=== PATIENT | male | born 1970 | race Caucasian/White ===

== ENCOUNTER → 2021-08-19 09:51 | Outpatient (BNVA) | payer OTHER, SELFPAY | PROVIDERS: Family Provider Nurse Practitioner; PCP Nurse Practitioner; Visit Provider Podiatrist Foot & Ankle Surgery | DX: M79.672 Pain in left foot (principal) | CPT/HCPCS: 73630 ==

== ENCOUNTER 2021-08-19 10:59 | Outpatient (CLI) | payer OTHER, SELFPAY | END 2021-08-19 11:00 | disposition home or self-care (01) | LOC: SPT 11:00 | PROVIDERS: Family Provider Nurse Practitioner; PCP Nurse Practitioner; Visit Provider Podiatrist Foot & Ankle Surgery | DX: Z46.89 Encounter for fitting and adjustment of other specified devices (principal); M76.70 Peroneal tendinitis, unspecified leg | CPT/HCPCS: 97760; L4361 ==

== ENCOUNTER 2022-02-16 15:51 | Outpatient (CLI) | payer OTHER, SELFPAY | END 2022-02-16 15:52 | disposition home or self-care (01) | LOC: SPT 15:52 | PROVIDERS: Family Provider Nurse Practitioner; PCP Nurse Practitioner; Visit Provider Podiatrist Foot & Ankle Surgery | DX: M79.673 Pain in unspecified foot (principal); M76.70 Peroneal tendinitis, unspecified leg | CPT/HCPCS: L3030 ==

== ENCOUNTER → 2022-02-25 09:39 | Outpatient (BNVA) | payer OTHER, SELFPAY | PROVIDERS: Family Provider Nurse Practitioner; PCP Nurse Practitioner Family; Visit Provider Nurse Practitioner Family | DX: I10 Essential (primary) hypertension (principal); R04.0 Epistaxis; J30.2 Other seasonal allergic rhinitis | CPT/HCPCS: 80053; 85025 ==

== ENCOUNTER 2024-07-10 12:17 | Outpatient (CLI) | payer BC, SELFPAY ==
[2024-07-10 12:26] VITALS: BMI 36.7
--- NOTE | 2024-07-10 12:27 | ECG_ITS ---
[facility] Test Date: 2024-07-10 Pat Name: Mario Alberto Mays Department: Room: Gender: Male Management Expert: : 1970 Requested By: Pipe Crowell Order Number: [id number] Nicola MD: Ketan Diggs M.D. Interpretive Statements EXERCISE STRESS TEST EXERCISE DATA: The patient was exercised by Jose Alberto protocol. Baseline heart rate was 62 beats per minute. Baseline blood pressure was 132/87 millimeters of mercury. Maximal predicted heart rate was 166 beats per minute. Maximum heart rate achieved was 160, which was 96% of the maximum predicted heart rate. Maximum blood pressure was 199/77 millimeters of mercury. Total exercise time was 8 Minutes 49 seconds. Maximum METs achieved was 10.2. The reason for ending the test was maximal effort achieved. The patient complained of shortness of breath and chest/throat burn during the stress test, which then resolved at the end of the test. ELECTROCARDIOGRAM: BASELINE: Showed sinus rhythm, normal axis, no significant ST-T changes at the baseline noted. [] EXERCISE: At the peak exercise level, [] No significant ST-T changes suggestive of ischemia noted. [] RECOVERY: During the recovery period, heart rate dropped appropriately. No significant ST-T changes in the recovery suggestive of ischemia noted. [] CONCLUSION: 1. Exercise capacity is good. 2. Heart rate response was appropriate 3. Blood pressure response was appropriate 4. Symptoms not suggestive of ischemia. 5. Stress test is negative for ischemia Electronically Signed On 07-14-2024 10:02:54 BANQUET SET UP PERSON by Ketan Diggs M.D. [email or web address]
[2024-07-10 13:11] VITALS: BP 154/78; PULSE 82
[2024-07-10 14:08] LABS: Alanine Aminotransferase 27 U/L (0-41); Albumin Level 4.2 g/dL (3.5-5.2); Alkaline Phosphatase 69 U/L (40-130); Anion Gap 17.8 (5-19); Aspartate Amino Transferase 15 U/L (0-40); Blood Urea Nitrogen 18 mg/dL (6-20); Calcium 9.4 mg/dL (8.5-10.5); Carbon Dioxide 25 mmol/L (22-29); Chloride 100 mmol/L (98-107); Creatinine Clr Calc Pharmacy 92.9928; Globulin 2.7 g/dL (1.3-4.6); Glomerular Filtration Rate 57.5 mL/min (90-130); Glucose 101 mg/dL (65-115); Osmolality Calculated 290 mOsm/kg (285-295); Potassium 3.8 mmol/L (3.5-5.1); Sodium 139 mmol/L (136-145); Total Bilirubin 0.7 mg/dL (0.15-1.2); Total Protein 6.9 g/dL (6.6-8.7)
[2024-07-15 16:18] LABS: Dopamine Level <10 pg/mL; Epinephrine Level <10 pg/mL; Norepinephrine Level 312 pg/mL; Total Catecholamines <332 pg/mL
[2024-07-15 21:29] LABS: Calculated Total (E+NE) 32 mcg/g cr (9-74); Creatinine, Random Urine 75 mg/dL (20-320); Epinephrine Urine 9 mcg/g cr (2-16); Norepinphrine Urine 23 mcg/g cr (7-65)
== END 2024-07-10 12:18 | disposition home or self-care (01) ==
PROVIDERS: PCP Nurse Practitioner Family; Visit Provider Nurse Practitioner Family
DX: I10 Essential (primary) hypertension (principal); R07.89 Other chest pain
CPT/HCPCS: 36415; 80053; 82384; 82570; 93017

== ENCOUNTER 2024-07-11 11:23 | Outpatient (CLI) | payer BC, SELFPAY ==
--- NOTE | 2024-07-11 11:31 | XR_ITS ---
WS: [id number] Exam: XR cervical spine 3V* [id number] Date/Time of Exam: 07/11/2024 11:41 AM Reason For Exam: M48.02 - Spinal stenosis, cervical region No acute fracture. Disc spaces are relatively well-maintained. Minimal spondylosis. Mild facet DJD at all levels. Normal paraspinal soft tissues. The odontoid is intact. IMPRESSION1. Degenerative changes. No fracture or malalignment.
--- NOTE | 2024-07-11 11:31 | XR_ITS ---
WS: [id number] Exam: XR thoracic spine 3V* [id number] Date/Time of Exam: 07/11/2024 11:41 AM Reason For Exam: M48.02 - Spinal stenosis, cervical region No fracture noted. Mild spondylosis. Normal paraspinal soft tissues. XR/XR thoracic spine 3V* [id number] IMPRESSION: 1. Mild spondylosis. No fracture or malalignment.
== END 2024-07-11 11:24 | disposition home or self-care (01) ==
PROVIDERS: PCP Nurse Practitioner Family; Visit Provider Nurse Practitioner Family
DX: M48.02 Spinal stenosis, cervical region (principal); M47.894 Other spondylosis, thoracic region; M19.90 Unspecified osteoarthritis, unspecified site
CPT/HCPCS: 72040; 72072

== ENCOUNTER 2024-07-12 08:57 | Observation (INO) | payer BC, SELFPAY ==
[2024-07-12] VITALS (9 sets, daily range): BP systolic 145–163; BP diastolic 90–106; PULSE 59–75; RESP 17–19; TEMP 36.7–37; O2SAT 93–100; BMI 36.7
[2024-07-12 09:24] LABS: Basophils % 0.2 %; Eosinophils % 0.1 %; Hematocrit 48.7 % (37-53); Lymphocytes # 1.6 10^3/uL (0.8-4.8); Lymphocytes % 10.1 %; Mean Corpuscular HGB Conc 33.1 g/dL (30-55); Mean Corpuscular Hemoglobin 30.3 pg (27-33); Mean Corpuscular Volume 91.5 fl (82-101); Mean Platelet Volume 10.4 fL (7.4-10.4); Monocytes # 1.2 10^3/uL (0.2-0.9); Neutrophils # 12.52 10^3/uL (1.8-7.7); Neutrophils % 81.1 %; Nucleated Red Blood Cells % 0 %; Platelet Count 234 10^3/cmm (157-399); Red Blood Count 5.32 10^6/uL (3.85-5.65); Red Cell Distribution Width 13.2 % (12.1-15.1); White Blood Count 15.42 10^3/uL (3.29-11.43)
--- NOTE | 2024-07-12 09:26 | CT_ITS ---
WS: [id number] CT ABDOMEN PELVIS TECHNIQUE: Contrast-enhanced CT of the abdomen and pelvis with coronal and sagittal reformatted image s. CLINICAL INFORMATION: abdominal pain, bloody stools COMPARISON: None. DLP: 1187.[address] scans at [facility] use at least one of these dose optimization techniques: automated e xposure control; mA and/or kV adjustment per patient size (includes targeted exams where dose is matc hed to clinical indication); or iterative reconstruction. FINDINGS: Inflammatory stranding with edema and surrounding induration involving the sigmoid colon in the LEFT lower quadrant compatible with acute diverticulitis. This extends into the descending distal LEFT col on. No evidence of drainable abscess or drainable fluid collection. No evidence of high-grade obstruc tion. Mild diffuse fatty infiltration of the liver. Small hepatic cyst RIGHT hepatic lobe. Normal gallbladd er. Small esophageal hiatal hernia. Normal small bowel. No evidence of small or large bowel obstructi on. Normal transverse colon and RIGHT colon. Mild prostate enlargement. Adrenal glands are normal. No hydronephrosis in either kidney. Normal panc reas. Normal spleen. Normal gallbladder. Portal vein and splenic vein are patent. Lung bases are well aerated. Normal caliber abdominal aorta. Celiac and SMA are patent. Mild disc bul ging L3-4. CT/CT abdomen pelvis w con* [id number] IMPRESSION: 1. Acute diverticulitis sigmoid colon. No evidence of drainable abscess or flu id collection. 2. No other acute findings. Notified AMADO Dewey at 07/12/2024 10:35 AM.
--- NOTE | 2024-07-12 09:26 | W.ED.ABDPA2 ---
HPI - Abdominal Pain General: Chief Complaint: Abdominal Pain Stated Complaint: abdominal pain Time Seen by Provider: 07/12/24 08:58 Source: patient and family Mode of arrival: ambulatory Limitations: no limitations History of Present Illness: Patient is a nice 64-year-old male presents to ED today with complaint of abdominal pain and bloody diarrhea. He states he began noticing abdominal pain in the middle of the night around midnight. He states he was having diarrhea every 15 to 20 minutes. Patient states that the lights were off so he could not characterize the diarrhea stool any further. He states this morning when he turned on the lights he noticed that his diarrhea was bright red and blood. He is having severe abdominal pain and cramping. This somewhat improves after defecation. Denies poor food exposures. No fevers. 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 He is not having any rectal pain or swelling. He does have a history of psoriasis around his rectum. He arrives with stable vital signs. MD elicited complaint: abdominal pain Pertinent past history: other (anal fissure/fistula) Onset (ago): hour(s) Pain Consistency: constant Location: Diffuse Severity: severe Quality: cramping Radiation: none Migration to: no migration Exacerbating factors: nothing Relieving factors: bowel movement Associated Symptoms: Reports GI cramping, diarrhea, hematochezia and nausea; Denies chills, dysuria, fever(s), hematemesis, melena and vomiting Related Data Previous Rx's Medication Instructions Recorded prednisone 20 mg tablet 20 mg PO DAILY #17 tabs 07/04/24 Allergies Allergy/AdvReac Type Severity Reaction Status Date / Time naproxen Allergy Mild Itching Verified 07/04/24 15:54 Review of Systems Const: Denies: fever(s), chills, body aches, fatigue or malaise Card: Denies: chest pain Resp: Denies: dyspnea GI: Reports: abdominal pain, nausea, diarrhea, GI cramping and hematochezia; Denies: vomiting, hematemesis, rectal pain, rectal swelling or melena : Denies: flank pain or dysuria Musc: Denies: neck pain, back pain, extremity pain, extremity swelling, joint pain or joint swelling Skin/Breast: Denies: rash Neuro: Denies: headache(s) or dizziness PFSH ED PFSH: Social History Smoking and tobacco/nicotine status: current every day tobacco/nicotine user Second hand smoke exposure: No Alcohol intake: never Substance/Drug Use: never Physical Exam Const: COMMON NORMALS: average body habitus, patient oriented x3, no limitations, healthy appearing, alert and well nourished GENERAL APPEARANCE: cooperative and in distress (visibly appears uncomfortable ) ORIENTATION/CONSCIOUSNESS: Yes awake, Yes oriented to person, Yes oriented to place and Yes oriented to time Resp: COMMON NORMALS: normal respiratory effort and clear to auscultation bilaterally AUSCULTATION: clear to auscultation bilaterally Cardio: COMMON NORMALS: regular rate and regular rhythm RATE: regular rate RHYTHM: regular rhythm GI: COMMON NORMALS: no masses INSPECTION: Yes normal to inspection AUSCULTATION: Yes Hypoactive bowel sounds present PALPATION: Yes Tenderness to palpation present (GI) (diffusely), Yes Guarding due to palpation present (GI) and No Rigid due to palpation RECTAL EXAM: Yes visual inspection normal : COMMON NORMALS: Yes no CVA tenderness BLADDER/KIDNEY EXAM: Yes no CVA tenderness Back/Pelvis: COMMON NORMALS: no CVA tenderness Extremity: GENERAL: Yes normal exam except as noted Neuro: MARSHA COMA SCALE: document GCS findings Marsha coma scale eye opening: Spontaneous Marsha coma scale verbal response: Orientated [place] coma scale motor response: Obey commands [place] coma scale total score: 15 COMMON NORMALS: patient oriented x3, moves all extremities, no focal motor deficits and no sensory deficits noted SENSORIUM/ORIENTATION: Yes alert, Yes oriented to person, Yes oriented to place and Yes oriented to time Skin: COMMON NORMALS: no rashes or lesions noted GENERAL SKIN EXAM: no rashes or lesions noted Course Consultations: Consultation #1: Dr. Rivera-accepts observation admit Vital Signs: Vital signs: Vital Signs Temperature 98.1 F 07/12/24 09:12 Pulse Rate 62 07/12/24 09:18 Respiratory Rate 18 07/12/24 09:50 Blood Pressure 163/97 07/12/24 09:18 Pulse Oximetry 97 07/12/24 09:18 Oxygen Delivery Me thod Room Air 07/12/24 09:18 MDM - Abdominal Pain Medical Decision Making Patient is a nice 54-year-old male here with complaints of bloody diarrhea and significant abdominal pain. He was found to have acute uncomplicated diverticulitis. Patient is concerned about pain not being able to be controlled at home. He does have a white count of 15.4 today. He has been on steroids recently. Remainder of blood work overall looks okay. I think given his clinical presentation, it is reasonable to keep him overnight for an observation stay. He was started on IV antibiotics. Spoke to hospitalist, Dr. Rivera, who is agreeable to observation. Dr. Mario agrees with plan and will write admit orders. Differential Diagnosis Likely abdominal pain and diverticulitis Medical Records I reviewed the patient's medical records. Lab Data I reviewed the patient's lab results. 07/12/24 09:19 07/12/24 09:19 Labs/Radiology: Radiology Impressions Abdomen/Pelvis CT 07/12/24 09:26 IMPRESSION: 1. Acute diverticulitis sigmoid colon. No evidence of drainable abscess or fluid collection. 2. No other acute findings. Notified AMADO Dewey at 07/12/2024 10:35 AM. Laboratory Results WBC 15.42 10^3/uL (3.29-11.43) H 07/12/24 09:19 RBC 5.32 10^6/uL (3.85-5.65) 07/12/24 09:19 Hgb 16.10 g/dL (11.27-16.99) 07/12/24 09:19 Hct 48.7 % (37-53) 07/12/24 09:19 MCV 91.5 fl (82-101) 07/12/24 09:19 MCH 30.3 pg (27-33) 07/12/24 09:19 MCHC 33.1 g/dL (30-55) 07/12/24 09:19 RDW 13.2 % (12.1-15.1) 07/12/24 09:19 Plt Count 234 10^3/cmm (157-399) 07/12/24 09:19 MPV 10.4 fL (7.4-10.4) 07/12/24 09:19 Neut % (Auto) 81.1 % 07/12/24 09:19 Lymph % (Auto) 10.1 % 07/12/24 09:19 [place]houn % (Auto) 8.0 % 07/12/24 09:19 Eos % (Auto) 0.1 % 07/12/24 09:19 Baso % (Auto) 0.2 % 07/12/24 09:19 Neut # (Auto) 12.52 10^3/uL (1.8-7.7) H 07/12/24 09:19 Lymph # (Auto) 1.6 10^3/uL (0.8-4.8) 07/12/24 09:19 [place]oun # (Auto) 1.2 10^3/uL (0.2-0.9) H 07/12/24 09:19 Eos # (Auto) 0.0 10^3/uL (0.0-0.8) 07/12/24 09:19 Baso # (Auto) 0.0 10^3/uL (0.0-0.1) 07/12/24 09:19 Nucleated RBC % (auto) 0 % 07/12/24 09:19 Nucleated RBCs # 0.0 /100WBC 07/12/24 09:19 Sodium 138 mmol/L (136-145) 07/12/24 09:19 Potassium 4.2 mmol/L (3.5-5.1) 07/12/24 09:19 Chloride 100 mmol/L (98-107) 07/12/24 09:19 Carbon Dioxide 27 mmol/L (22-29) 07/12/24 09:19 Anion Gap 15.2 (5-19) 07/12/24 09:19 BUN 16 mg/dL (6-20) 07/12/24 09:19 Creatinine 1.1 mg/dL (0.7-1.2) 07/12/24 09:19 GFR Calculation 69.8 mL/min (90-130) L 07/12/24 09:19 Glucose 132 mg/dL (65-115) H 07/12/24 09:19 Calculated Osmolality 289 mOsm/kg (285-295) 07/12/24 09:19 Lactic Acid 1.0 mmol/L (0.5-2.2) 07/12/24 09:53 Calcium 8.9 mg/dL (8.5-10.5) 07/12/24 09:19 Total Bilirubin 0.4 mg/dL (0.15-1.2) 07/12/24 09:19 AST 12 U/L (0-40) 07/12/24 09:19 ALT 31 U/L (0-41) 07/12/24 09:19 Alkaline Phosphatase 75 U/L (40-130) 07/12/24 09:19 Total Protein 6.7 g/dL (6.6-8.7) 07/12/24 09:19 Albumin 4.0 g/dL (3.5-5.2) 07/12/24 09:19 Globulin 2.7 g/dL (1.3-4.6) 07/12/24 09:19 Lipase 15 U/L (13-60) 07/12/24 09:19 Urine Color Yellow (Yellow) 07/12/24 10:29 Urine Appearance Clear (CLEAR) 07/12/24 10:29 Urine pH 6.0 (5-7) 07/12/24 10:29 Ur Specific [place] 1.030 (1.005-1.030) 07/12/24 10:29 Urine Protein Negative (Negative) 07/12/24 10:29 Urine Glucose (UA) Negative (Normal) 07/12/24 10:29 Urine Ketones Negative (Negative) 07/12/24 10:29 Urine Blood Negative (Negative) 07/12/24 10:29 Urine Nitrate Negative (Negative) 07/12/24 10:29 Urine Bilirubin Negative (Negative) 07/12/24 10:29 Urine Urobilinogen 0.2 mg/dL (Negative) 07/12/24 10:29 Ur Leukocyte Esterase Negative (Negative) 07/12/24 10:29 Urine RBC 0-2 /hpf (0-2) 07/12/24 10:29 Urine WBC 0-5 /hpf (0-5) 07/12/24 10:29 Ur Squamous Epith Cells 0-5 /hpf (0-5) 07/12/24 10:29 Amorphous Sediment Not Reportable 07/12/24 10:29 Urine Bacteria None seen /hpf (NONE) 07/12/24 10:29 Hyaline Casts 0.40 /lpf 07/12/24 10:29 All radiology interpretation(s) finalized by discharge Discharge Plan Discharge Patient Disposition: Placed in Observation Clinical Impression: Diverticulitis Condition: Stable Prescriptions: No Action prednisone 20 mg tablet 20 mg PO DAILY Qty: 17 0RF Rx Instructions: 3 tabs a day for 3 days then 2 tabs a day for 3 days then 1 tab a day for 2 days Referrals: Pipe Medina FNP [Primary Care Provider] - Coding Level of Care Code ED Superintendent [employer] for Kyree Cueva
[2024-07-12 09:41] LABS: Alanine Aminotransferase 31 U/L (0-41); Alkaline Phosphatase 75 U/L (40-130); Anion Gap 15.2 (5-19); Aspartate Amino Transferase 12 U/L (0-40); Blood Urea Nitrogen 16 mg/dL (6-20); Calcium 8.9 mg/dL (8.5-10.5); Carbon Dioxide 27 mmol/L (22-29); Chloride 100 mmol/L (98-107); Creatinine Clr Calc Pharmacy 109.9006; Globulin 2.7 g/dL (1.3-4.6); Glomerular Filtration Rate 69.8 mL/min (90-130); Glucose 132 mg/dL (65-115); Lipase 15 U/L (13-60); Osmolality Calculated 289 mOsm/kg (285-295); Potassium 4.2 mmol/L (3.5-5.1); Sodium 138 mmol/L (136-145); Total Bilirubin 0.4 mg/dL (0.15-1.2); Total Protein 6.7 g/dL (6.6-8.7)
[2024-07-12] MEDS: morphine 4 mg/mL SDV 1 mL IVP ×2 (09:50→11:13)
[2024-07-12] MEDS: ondansetron 2 mg/ML SDV 2 mL 4 MG IVP (09:50)
[2024-07-12] MEDS: iohexol 350 mg/mL 500 mL Btl (per mL) IV (10:02)
[2024-07-12 10:36] LABS: Bilirubin Urine Negative (Negative); Blood Urine Negative (Negative); Glucose Urine UA Negative (Normal); Ketones Urine Negative (Negative); Leukocyte Esterase Urine Negative (Negative); Nitrate Urine Negative (Negative); Protein Urine Negative (Negative); Urine Appearance Clear (CLEAR); Urine Color Yellow (Yellow); Urobilinogen Urine 0.2 mg/dL (Negative)
[2024-07-12 10:41] LABS: Add Urine Microscopic? YES; Bacteria Urine None Seen /hpf; RBC Urine 0-2 /hpf (0-2); Squamous Epithelial Cell Urine 0-5 /hpf (0-5); WBC Urine 0-5 /hpf (0-5)
[2024-07-12] MEDS: ciprofloxacin 400 MG/200 ML PREMIX 200 MG IV ×2 (11:27→23:27)
[2024-07-12] MEDS: metroNIDAZOLE IV 500 MG/100 ML PREMIX 100 MG IV ×2 (11:27→21:04)
[2024-07-12 13:48] LABS: C.Diff PCR (Lab) NEGATIVE (Negative)
[2024-07-12] MEDS: lactated ringers 1,000 ML 75 ML IV (14:04)
--- NOTE | 2024-07-12 14:17 | P.HP_ITS ---
Documented by User: Mckenzie Rebolledo, MED STDNT 07/12/24 14:47 Providers/Chief Complaint 2 Admitting Physician: Kuldeep Rivera Primary Care Provider: Pipe Medina Chief Complaint: abdominal pain History of Present Illness Mario Alberto Mays is a 54 year old male with PMH of musculoskeletal cervical pain, hypertension, anal fistula status post multiple surgeries presenting to the ED today for bright red blood per rectum and diffuse severe abdominal cramping and pain, nausea. He began having diarrhea yesterday and was going multiple times an hour. Was having abdominal discomfort but not severe. Bowel meds to his knowledge were nonbloody up until 11 PM last night. Then he went to bed and continued to get up throughout the night with frequent bowel movements, however did not turn the lights on to look at them. Then this morning he noticed that there was bright red blood at the bottom of the toilet likely in the stool but not in the water which remained clear. He became significantly worse overnight which prompted him to come in. He has been taking prednisone for the past 7 days for his shoulder and cervical musculoskeletal pain. He does not see a primary care doctor regularly. His last colonoscopy was in 2020 and was told his next due would be in 10 years. His fistula surgeries were over 2 years ago and he has not noticed any blood in his stool since those surgeries up until last night. Denies fevers and chills. Has not been able to eat or drink anything over the past 24 hours due to nausea. [place] the [place] with friends and did have a fish lawler with fish that they caught. Otherwise no other concerning food exposures. Review of Systems 2 Const: Denies: fever(s) or chills Card: Denies: chest pain, palpitations or edema Resp: Denies: dyspnea, productive cough or wheezing GI: Reports: abdominal pain, nausea, diarrhea, bloating and GI cramping; Denies: vomiting : Denies: difficulty urinating or hematuria Medications/Allergies Home Medications Medication Instructions Recorded Confirmed Last Taken Type prednisone 20 mg tablet 20 mg PO DAILY #17 tabs 07/04/24 07/12/24 Unknown Rx Allergies Allergy/AdvReac Type Severity Reaction Status Date / Time naproxen Allergy Mild Itching Verified 07/04/24 15:54 PFSH Acute 2 PFSH: Medical History Foot pain Anal fistula Social History Smoking and tobacco/nicotine status: current every day tobacco/nicotine user Second hand smoke exposure: No Alcohol intake: never Substance/Drug Use: never Vitals/I&O/Wt Last Vital Signs Temp 98.1 F 07/12/24 09:12 Pulse 63 07/12/24 12:11 Resp 18 07/12/24 11:13 BP 163/106 07/12/24 12:11 Pulse Ox 97 07/12/24 12:11 O2 Del Method Room Air 07/12/24 12:53 07/11/24 07/12/24 07/12/24 22:59 06:59 14:59 Intake Total 300 / 300 Balance 300 / 300 Weight last 48 hrs Weight 129.727 kg Weight 129.727 kg Physical Exam 2 Const: COMMON NORMALS: no acute distress, patient oriented x3, healthy appearing and alert GENERAL APPEARANCE: cooperative and comfortable HENMT: COMMON NORMALS: normocephalic and atraumatic Eye: COMMON NORMALS: Equal, round and reactive pupils present and EOMs intact bilaterally Resp: COMMON NORMALS: normal respiratory effort and clear to auscultation bilaterally EFFORT & INSPECTION: Yes symmetric chest movement and No respiratory distress AUSCULTATION: no crackles and no wheezes Cardio: COMMON NORMALS: regular rate, regular rhythm, S1 normal heart sound present, S2 normal heart sound present and No murmurs present (Cardio) GI: OTHER: Mild diffuse tenderness. Mild distention, soft. Bowel sounds present. Data 07/12/24 09:19 07/12/24 09:19 Micro: Microbiology 07/12/24 12:15 Stool Lactoferrin - Final Stool Occult Blood (FIT) - Final A&P Assessment and plan (1) Hematochezia: (2) Diverticulitis: Plan Mario Alberto Mays is a 54 year old male with PMH of musculoskeletal cervical pain, hypertension, anal fistula status post multiple surgeries presenting to the ED today for bright red blood per rectum and diffuse severe abdominal cramping and pain, nausea. He is currently hemodynamically stable without hypotension or tachycardia, hemoglobin stable. C. difficile obtained given his recent corticosteroid use which can increase risk for this, this returned negative. Workup as below. # Bright red blood per rectum # Diarrhea # Nausea # Diverticulitis ?Continue ciprofloxacin and Flagyl ?Ordered GI pathogen panel including Giardia and crypto ?ESR, CRP for IBD workup ?Maintenance LR at 75cc/hr ?Blood culture pending ?Avoiding opioids due to risk of ileus ? Zofran for nausea DVT prophylaxis: mechanical prevention for now given current hematochezia Full code Coding Level of Care Code 70628 Diagnoses Hematochezia K92.1 Diverticulitis K57.92 Documented by User: Kuldeep Rivera MD 07/12/24 16:21 Providers/Chief Complaint 2 Chief Complaint: abdominal pain Medications/Allergies Home Medications Medication Instructions Recorded Confirmed Last Taken Type prednisone 20 mg tablet 20 mg PO DAILY #17 tabs 07/04/24 07/12/24 Unknown Rx Allergies Allergy/AdvReac Type Severity Reaction Status Date / Time naproxen Allergy Mild Itching Verified 07/04/24 15:54 PFSH Acute 2 PFSH: Medical History Foot pain Anal fistula Social History Smoking and tobacco/nicotine status: current every day tobacco/nicotine user Second hand smoke exposure: No Alcohol intake: never Substance/Drug Use: never Data 07/12/24 09:19 07/12/24 09:19 A&P Assessment and plan (1) Hematochezia: (2) Diverticulitis: Attestations 2 Medical Necessity Statement*: Place in observation for additional assessment management of diverticulitis with refusal or diarrhea, hematochezia, abdominal pain and cramping, leukocytosis. Other Attestations: Patient seen and examined independently, findings and assessment and plan discussed with medical reception specialist Dr Rebolledo. Pleasant 54-year-old gentleman recently completing a course of prednisone for musculoskeletal pain of his cervical and thoracic spine, also had a fishing trip to the river recently where he ate some freshly caught fish, presented to ER due to severe diarrhea, abdominal cramping, pain, lack of appetite, since last night and then also noticed that he was having christine red blood in the stool with the watery diarrhea. In ER with finding of leukocytosis 15.4. Otherwise afebrile, without tachycardia, hypertensive. With significant symptoms observation in the hospital is been requested. He is empirically started on Cipro and Flagyl. C. difficile PCR has been requested, returning negative. Reviewed vitals, CBC, CMP, CRP and ESR requested, reviewed UA, CT abdomen pelvis, ER provider note, discussed with ER provider. CT abdomen pelvis showing diverticulitis. He also has history of anal fistula, some chronic diarrhea, although without any history of hematochezia, no history of recurrent abdominal pain. No history of IBD. CRP and ESR reviewed, returning unremarkable. Additional stool studies requested with Salmonella, Shigella, Campylobacter, Giardia and Cryptosporidium. On questioning he also states he draws water at home out of the well, and with recent rainfall recommended to have daughter tested with the health department. He is otherwise continue with bowel rest, IV hydration. Monitor for risk of fluid overload. With empiric antibiotics, monitor for risk of C. difficile development. Risk of tendinitis, neuropathy with quinolone. In case of worsening, or need for surgical or other intervention he and his requesting the situation to arrange for transfer to [facility] where he had previously seen a colorectal surgeon. With [facility], monitor for risk of significant anemia. ReassessHb tonight, blood counts in AM. Reassess chemistry with risk of electrolyte deficiency. His last colonoscopy was 4 years ago which was unremarkable. Consider repeat study after 6 weeks after recovery. and High MDM includes amount and/or complexity of data reviewed/ordered [ previous or external records, resulted lab(s)/test(s), ordered lab(s)/test(s) and other healthcare professional discussion] and described risk of complication, morbidity or mortality of management as documented Diagnoses Hematochezia K92.1 Diverticulitis K57.92
[2024-07-12 14:54] LABS: Erythrocyte Sedimentation Rate 4 mm/hr (0-10)
[2024-07-12 15:05] LABS: C Reactive Protein 8.2 mg/L (0.0-4.9)
[2024-07-12] MEDS: acetaminophen 325 mg Tablet 650 MG PO ×2 (15:52→21:43)
[2024-07-13] MEDS: lactated ringers 1,000 ML 75 ML IV ×2 (00:14→10:51)
[2024-07-13] MEDS: metroNIDAZOLE IV 500 MG/100 ML PREMIX 100 MG IV ×3 (03:05→18:39)
[2024-07-13 04:00] VITALS: BP 124/73; PULSE 65; RESP 17; TEMP 36.7; O2SAT 95
[2024-07-13 04:00] LABS: Basophils % 0.3 %; Eosinophils # 0.1 10^3/uL (0.0-0.8); Eosinophils % 0.5 %; Hematocrit 47.1 % (37-53); Lymphocytes # 2.3 10^3/uL (0.8-4.8); Lymphocytes % 17.5 %; Mean Corpuscular HGB Conc 32.9 g/dL (30-55); Mean Corpuscular Hemoglobin 30.9 pg (27-33); Mean Platelet Volume 10.7 fL (7.4-10.4); Monocytes # 1.1 10^3/uL (0.2-0.9); Monocytes % 8.5 %; Neutrophils # 9.33 10^3/uL (1.8-7.7); Neutrophils % 72.7 %; Nucleated Red Blood Cells % 0 %; Platelet Count 236 10^3/cmm (157-399); Red Blood Count 5.01 10^6/uL (3.85-5.65); Red Cell Distribution Width 13.2 % (12.1-15.1); White Blood Count 12.85 10^3/uL (3.29-11.43)
[2024-07-13 04:33] LABS: Alanine Aminotransferase 21 U/L (0-41); Albumin Level 3.5 g/dL (3.5-5.2); Alkaline Phosphatase 70 U/L (40-130); Anion Gap 11.3 (5-19); Aspartate Amino Transferase 9 U/L (0-40); Blood Urea Nitrogen 10 mg/dL (6-20); Calcium 8.7 mg/dL (8.5-10.5); Carbon Dioxide 29 mmol/L (22-29); Chloride 102 mmol/L (98-107); Creatinine Clr Calc Pharmacy 100.5798; Globulin 2.4 g/dL (1.3-4.6); Glomerular Filtration Rate 63.1 mL/min (90-130); Glucose 107 mg/dL (65-115); Osmolality Calculated 286 mOsm/kg (285-295); Potassium 4.3 mmol/L (3.5-5.1); Sodium 138 mmol/L (136-145); Thyroid Stimulating Hormone 2.91 uIU/mL (0.27-4.20); Total Bilirubin 0.6 mg/dL (0.15-1.2); Total Protein 5.9 g/dL (6.6-8.7)
[2024-07-13 08:00] VITALS: BP 148/92; PULSE 77; RESP 16; TEMP 36.6; O2SAT 93
[2024-07-13 10:10] LABS: Procalcitonin 0.04 ng/mL (0-0.5)
--- NOTE | 2024-07-13 11:04 | PC.NURSE ---
blood with bowel movement
[2024-07-13 12:00] VITALS: BP 131/88; PULSE 74; RESP 16; TEMP 36.8; O2SAT 95
[2024-07-13] MEDS: ciprofloxacin 400 MG/200 ML PREMIX 200 MG IV ×2 (12:00→22:57)
[2024-07-13 16:00] VITALS: BP 155/78; PULSE 68; RESP 16; TEMP 36.6; O2SAT 99
--- NOTE | 2024-07-13 17:52 | P.PN_ITS ---
Subjective 2 Subjective: Patient was seen this morning, no fevers, no chills, he is still passing stools with blood in it although with significantly reduced, abdominal pain has significantly resolved, no fevers, no chills, no nausea, no vomiting tolerating clear liquids well Vitals/I&O/Wt Last Vital Signs Temp 98.3 F 07/13/24 12:00 Pulse 74 07/13/24 12:00 Resp 16 07/13/24 12:00 BP 131/88 07/13/24 12:00 Pulse Ox 95 07/13/24 12:00 O2 Del Method Room Air 07/13/24 12:00 07/13/24 07/13/24 07/13/24 06:59 14:59 22:59 Intake Total 427.5 / 2142.5 2427.50 / 2427.50 Balance 427.5 / 2142.5 2427.50 / 2427.50 Weight last 48 hrs Weight 129.319 kg Weight 129.727 kg Weight 129.727 kg Physical Exam 2 Const: COMMON NORMALS: no acute distress and patient oriented x3 Resp: COMMON NORMALS: normal respiratory effort, No retractions, No use of accessory muscles and clear to auscultation bilaterally AUSCULTATION: clear to auscultation bilaterally Cardio: COMMON NORMALS: regular rate, regular rhythm, S1 normal heart sound present and S2 normal heart sound present RATE: regular rate RHYTHM: r egular rhythm HEART SOUNDS: S1 normal heart sound present and S2 normal heart sound present GI: OTHER: Abdomen soft, slightly distended, no guarding, no rebound, rigidity, scattered bowel sounds Extremity: COMMON NORMALS: no pedal edema Neuro: COMMON NORMALS: patient oriented x3 Psych: COMMON NORMALS: mental status grossly normal Data 07/13/24 03:17 07/13/24 03:17 Micro: Microbiology 07/12/24 17:32 Blood Culture - Preliminary Blood NEGATIVE TO DATE 07/12/24 14:42 Blood Culture - Preliminary Blood NEGATIVE TO DATE 07/12/24 12:15 Stool Lactoferrin - Final Stool Occult Blood (FIT) - Final A&P Assessment and plan (1) Hematochezia: (2) Diverticulitis: Plan Acute diverticulitis # Bright red blood per rectum # Diarrhea # Nausea # Diverticulitis ?Continue ciprofloxacin and Flagyl ? Follow stool studies ? De-escalate fluid therapy ? Blood cultures so far no growth ? Morphine for pain ? Zofran for nausea DVT prophylaxis: mechanical prevention for now given current hematochezia Full code Attestations 2 Medical Necessity Statement*: Patient requires hospitalization for acute diverticulitis, Diagnoses Hematochezia K92.1 Diverticulitis K57.92
[2024-07-13 20:00] VITALS: BP 123/76; PULSE 83; RESP 17; TEMP 36.7; O2SAT 93
[2024-07-14] VITALS: BP 91/56; PULSE 59; RESP 16; TEMP 36.6; O2SAT 93
[2024-07-14] MEDS: metroNIDAZOLE IV 500 MG/100 ML PREMIX 100 MG IV (03:22)
[2024-07-14 03:36] LABS: Basophils % 0.5 %; Eosinophils # 0.3 10^3/uL (0.0-0.8); Eosinophils % 3.6 %; Hematocrit 44.7 % (37-53); Lymphocytes # 2.1 10^3/uL (0.8-4.8); Lymphocytes % 25.8 %; Mean Corpuscular HGB Conc 31.8 g/dL (30-55); Mean Corpuscular Hemoglobin 30.7 pg (27-33); Mean Corpuscular Volume 96.8 fl (82-101); Mean Platelet Volume 11.1 fL (7.4-10.4); Monocytes # 0.8 10^3/uL (0.2-0.9); Monocytes % 10.1 %; Neutrophils # 4.81 10^3/uL (1.8-7.7); Neutrophils % 58.9 %; Nucleated Red Blood Cells % 0 %; Platelet Count 140 10^3/cmm (157-399); Red Blood Count 4.62 10^6/uL (3.85-5.65); Red Cell Distribution Width 13.1 % (12.1-15.1); White Blood Count 8.15 10^3/uL (3.29-11.43)
[2024-07-14 03:56] LABS: Alanine Aminotransferase 27 U/L (0-41); Albumin Level 3.4 g/dL (3.5-5.2); Alkaline Phosphatase 64 U/L (40-130); Blood Urea Nitrogen 12 mg/dL (6-20); C Reactive Protein 8.2 mg/L (0.0-4.9); Calcium 8.3 mg/dL (8.5-10.5); Carbon Dioxide 23 mmol/L (22-29); Chloride 104 mmol/L (98-107); Creatinine Clr Calc Pharmacy 92.8429; Globulin 1.7 g/dL (1.3-4.6); Glomerular Filtration Rate 57.5 mL/min (90-130); Glucose 102 mg/dL (65-115); Osmolality Calculated 288 mOsm/kg (285-295); Sodium 139 mmol/L (136-145); Total Bilirubin 0.4 mg/dL (0.15-1.2); Total Protein 5.1 g/dL (6.6-8.7)
[2024-07-14 03:57] LABS: Anion Gap 16.9 (5-19); Aspartate Amino Transferase 17 U/L (0-40); Potassium 4.9 mmol/L (3.5-5.1)
[2024-07-14 04:00] VITALS: BP 124/78; PULSE 58; RESP 16; TEMP 36.6; O2SAT 95
[2024-07-14 08:00] VITALS: BP 110/67; PULSE 58; RESP 16; TEMP 36.3; O2SAT 95
--- NOTE | 2024-07-14 10:57 | PM.DCS ---
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 Overall patient's clinical condition improved, leukocytosis improved, remained afebrile, abdominal pain significantly improved. Patient will be discharged on 12 more days of ciprofloxacin and Flagyl, slowly advance diet, GI soft diet for the next 2 to 4 weeks, then advance to high-fiber diet. Follow-up with primary care provider in 1 to 2 weeks. Follow-up with general surgeon in [place] Dr. Orozco in 1 month. Patient did have bright red blood per rectum during his hospitalization, no hemodynamic compromise hemoglobin has remained stable it has resolved on discharge. Patient should follow-up with general surgery in 1 month for consideration of EGD and colonoscopy. Patient was advised if he has any recurrent bloody or black stools, or abdominal pain to go to emergency room Physical Exam Const: COMMON NORMALS: no acute distress and patient oriented x3 Resp: COMMON NORMALS: normal respiratory effort, No retractions, No use of accessory muscles and clear to auscultation bilaterally AUSCULTATION: clear to auscultation bilaterally Cardio: COMMON NORMALS: regular rate, regular rhythm, S1 normal heart sound present and S2 normal heart sound present RATE: regular rate RHYTHM: regular rhythm HEART SOUNDS: S1 normal heart sound present and S2 normal heart sound present GI: COMMON NORMALS: Normal to inspection, nondistended, normoactive bowel sounds present and non-tender Extremity: COMMON NORMALS: no pedal edema Neuro: COMMON NORMALS: patient oriented x3 Psych: COMMON NORMALS: mental status grossly normal Discharge Data Studies Completed and Pending Completed Studies During Hospitalization Category Date Time Status CT abdomen pelvis w con* [id number] Urgent Cat Scan 07/12/24 09:26 Completed Pending at discharge Category Date Time Status Blood Culture Stat Lab 07/12/24 17:32 Results C Reactive Protein AM LABS Lab 07/15/24 04:00 Ordered C Reactive Protein AM LABS Lab 07/16/24 04:00 Ordered Complete Blood Count w/Auto AM LABS Lab 07/15/24 04:00 Ordered Complete Blood Count w/Auto AM LABS Lab 07/16/24 04:00 Ordered Comprehensive Metabolic Panel AM LABS Lab 07/15/24 04:00 Ordered Comprehensive Metabolic Panel AM LABS Lab 07/16/24 04:00 Ordered Giardia and Cryptosporidium Ag Routine Lab 07/12/24 12:15 Received OVA and Parasites, Conc and PE Routine Lab 07/12/24 12:15 Received Salmonella / Shigella / Campy Routine Lab 07/12/24 12:15 Received Radiology Impressions Abdomen/Pelvis CT 07/12/24 09:26 IMPRESSION: 1. Acute diverticulitis sigmoid colon. No evidence of drainable abscess or fluid collection. 2. No other acute findings. Notified AMADO Dewey at 07/12/2024 10:35 AM. Laboratory Results WBC 8.15 10^3/uL (3.29-11.43) 07/14/24 03:05 RBC 4.62 10^6/uL (3.85-5.65) 07/14/24 03:05 Hgb 14.20 g/dL (11.27-16.99) 07/14/24 03:05 Hct 44.7 % (37-53) 07/14/24 03:05 MCV 96.8 fl (82-101) 07/14/24 03:05 MCH 30.7 pg (27-33) 07/14/24 03:05 MCHC 31.8 g/dL (30-55) 07/14/24 03:05 RDW 13.1 % (12.1-15.1) 07/14/24 03:05 Plt Count 140 10^3/cmm (157-399) L D 07/14/24 03:05 MPV 11.1 fL (7.4-10.4) H 07/14/24 03:05 Neut % (Auto) 58.9 % 07/14/24 03:05 Lymph % (Auto) 25.8 % 07/14/24 03:05 [place] % (Auto) 10.1 % 07/14/24 03:05 Eos % (Auto) 3.6 % 07/14/24 03:05 Baso % (Auto) 0.5 % 07/14/24 03:05 Neut # (Auto) 4.81 10^3/uL (1.8-7.7) 07/14/24 03:05 Lymph # (Auto) 2.1 10^3/uL (0.8-4.8) 07/14/24 03:05 [place] # (Auto) 0.8 10^3/uL (0.2-0.9) 07/14/24 03:05 Eos # (Auto) 0.3 10^3/uL (0.0-0.8) 07/14/24 03:05 Baso # (Auto) 0.0 10^3/uL (0.0-0.1) 07/14/24 03:05 Nucleated RBC % (auto) 0 % 07/14/24 03:05 Nucleated RBCs # 0.0 /100WBC 07/14/24 03:05 ESR 4 mm/hr (0-10) 07/12/24 09:19 Sodium 139 mmol/L (136-145) 07/14/24 03:05 Potassium 4.9 mmol/L (3.5-5.1) 07/14/24 03:05 Chloride 104 mmol/L (98-107) 07/14/24 03:05 Carbon Dioxide 23 mmol/L (22-29) 07/14/24 03:05 Anion Gap 16.9 (5-19) 07/14/24 03:05 BUN 12 mg/dL (6-20) 07/14/24 03:05 Creatinine 1.3 mg/dL (0.7-1.2) H 07/14/24 03:05 GFR Calculation 57.5 mL/min (90-130) L 07/14/24 03:05 Glucose 102 mg/dL (65-115) 07/14/24 03:05 Calculated Osmolality 288 mOsm/kg (285-295) 07/14/24 03:05 Lactic Acid 1.0 mmol/L (0.5-2.2) 07/12/24 09:53 Calcium 8.3 mg/dL (8.5-10.5) L 07/14/24 03:05 Total Bilirubin 0.4 mg/dL (0.15-1.2) 07/14/24 03:05 AST 17 U/L (0-40) 07/14/24 03:05 ALT 27 U/L (0-41) 07/14/24 03:05 Alkaline Phosphatase 64 U/L (40-130) 07/14/24 03:05 C-Reactive Protein 8.2 mg/L (0.0-4.9) H 07/14/24 03:05 Total Protein 5.1 g/dL (6.6-8.7) L 07/14/24 03:05 Albumin 3.4 g/dL (3.5-5.2) L 07/14/24 03:05 Globulin 1.7 g/dL (1.3-4.6) 07/14/24 03:05 Lipase 15 U/L (13-60) 07/12/24 09:19 Procalcitonin 0.04 ng/mL (0-0.5) 07/13/24 03:17 TSH 2.91 uIU/mL (0.27-4.20) 07/13/24 03:17 Urine Color Yellow (Yellow) 07/12/24 10:29 Urine Appearance Clear (CLEAR) 07/12/24 10:29 Urine pH 6.0 (5-7) 07/12/24 10:29 Ur Specific [place] 1.030 (1.005-1.030) 07/12/24 10:29 Urine Protein Negative (Negative) 07/12/24 10:29 Urine Glucose (UA) Negative (Normal) 07/12/24 10:29 Urine Ketones Negative (Negative) 07/12/24 10:29 Urine Blood Negative (Negative) 07/12/24 10:29 Urine Nitrate Negative (Negative) 07/12/24 10:29 Urine Bilirubin Negative (Negative) 07/12/24 10:29 Urine Urobilinogen 0.2 mg/dL (Negative) 07/12/24 10:29 Ur Leukocyte Esterase Negative (Negative) 07/12/24 10:29 Urine RBC 0-2 /hpf (0-2) 07/12/24 10:29 Urine WBC 0-5 /hpf (0-5) 07/12/24 10:29 Ur Squamous Epith Cells 0-5 /hpf (0-5) 07/12/24 10:29 Amorphous Sediment Not Reportable 07/12/24 10:29 Urine Bacteria None seen /hpf (NONE) 07/12/24 10:29 Hyaline Casts 0.40 /lpf 07/12/24 10:29 C. difficile (PCR) Negative (Negative) 07/12/24 12:15 Vitals Last Vital Signs Temp 97.4 F L 07/14/24 08:00 Pulse 58 L 07/14/24 08:00 Resp 16 07/14/24 08:00 BP 110/67 07/14/24 08:00 Pulse Ox 95 07/14/24 08:00 O2 Del Method Room Air 07/14/24 08:00 Discharge Plan Discharge Patient Disposition: Home Condition: Stable Prescriptions: New ciprofloxacin HCl 500 mg tablet 500 mg PO BID 12 Days Qty: 24 0RF metronidazole 500 mg tablet 500 mg PO Q8H 12 Days Qty: 36 0RF Discontinued prednisone 20 mg tablet 20 mg PO DAILY Qty: 17 0RF Rx Instructions: 3 tabs a day for 3 days then 2 tabs a day for 3 days then 1 tab a day for 2 days Discharge Orders: Discharge Order (Routine); Ordered 07/14/24 Ordered By: Jose Smith Referrals: Pipe Medina FNP [Primary Care Provider] - Jamie Orozco MD [Referring] - 1 month Discharge Diet: GI Soft Discharge Activity: Resume usual activity Patient Instructions: Opioid Safety Activity Restrictions/Additional Instructions: - For the first 2 to 4 weeks please adhere to a GI soft diet, low fiber diet -Once her abdominal pain has resolved -In about 2 to 4 weeks then adhere to high-fiber diet -Please hydrate well -Please take antibiotics as prescribed -If any recurrent abdominal pain, diarrhea, bloody stools please go to the emergency room -See primary care provider next week -Follow-up with general surgeon in 1 month Discharge Attestations Time Spent in Discharge Care*: greater than 30 min Quality Metrics Clinical Quality Measures [ No reported AMI, CVA or VTE this stay] Coding Level of Care Code 57035 Total time (in minutes) for Discharge: 45 Diagnoses Hematochezia K92.1 Diverticulitis K57.92
[2024-07-14 12:00] VITALS: BP 121/85; PULSE 67; RESP 15; TEMP 37; O2SAT 96
[2024-07-14 12:44] VITALS: BP 122/84; PULSE 70; O2SAT 98
== END 2024-07-14 12:45 | disposition home or self-care (01) ==
LOC: ER 11:11 → MEDSURG 11:58
PROVIDERS: Admitting Provider Internal Medicine; Emergency Provider Physician Assistant; PCP Nurse Practitioner Family; Visit Provider Family Medicine
DX: K57.31 Diverticulosis of large intestine without perforation or abscess with bleeding (principal); D72.829 Elevated white blood cell count, unspecified; I10 Essential (primary) hypertension; Z88.8 Allergy status to other drugs, medicaments and biological substances; F17.200 Nicotine dependence, unspecified, uncomplicated; Z79.52 Long term (current) use of systemic steroids
CPT/HCPCS: 36415; 74177; 80053; 81001; 82274; 83605; 83630; 83690; 84145; 84443; 85018; 85025; 85651; 86140; 87040; 87045; 87177; 87209; 87328; 87329; 87427; 87449; 87493; 96365; 96366; 96367; 96375; 96376; 99285; G0378; J0744; J2270; J2405; J3490; J7120

== ENCOUNTER 2024-07-24 09:58 | Outpatient (RCR) | payer BC, SELFPAY | END 2024-08-09 23:59 | disposition home or self-care (01) | LOC: WPT 09:58 | PROVIDERS: PCP Nurse Practitioner Family; Visit Provider Nurse Practitioner Family | DX: M48.02 Spinal stenosis, cervical region (principal) | CPT/HCPCS: 97110; 97112; 97161; 97530 ==

== ENCOUNTER 2024-08-10 06:00 | Outpatient (RCR) | payer BC, SELFPAY | END 2024-09-09 23:59 | disposition home or self-care (01) | LOC: WPT 06:00 | PROVIDERS: PCP Nurse Practitioner Family; Visit Provider Nurse Practitioner Family | DX: M48.02 Spinal stenosis, cervical region (principal) | CPT/HCPCS: 97110; 97112; 97530 ==

== ENCOUNTER 2024-09-10 06:00 | Outpatient (RCR) | payer BC, SELFPAY | END 2024-10-09 23:59 | disposition home or self-care (01) | LOC: WPT 06:00 | PROVIDERS: PCP Nurse Practitioner Family; Visit Provider Nurse Practitioner Family | DX: M48.02 Spinal stenosis, cervical region (principal); M54.6 Pain in thoracic spine | CPT/HCPCS: 97110; 97530 ==